=== PATIENT | male | born 2000 | race Caucasian/White ===

== ENCOUNTER 2019-06-02 19:30 | Emergency (ER) | payer OTHER ==
[2019-06-02 19:53] VITALS: BP 133/68
--- NOTE | 2019-06-02 20:36 | UC ---
Ear Complaint HPI - HPI Summary HPI Summary: 19 yo [place] student with 4 day hx of sore throat off and on, congestion, with progressive ear pain tonight. No fever. Using mucinex and advil with some relief of symptoms. - History of Current Complaint Chief Complaint: UCGeneralIllness Stated Complaint: CONGESTION,COUGH,R EAR COMPLAINT Time Seen by Provider: 06/02/19 20:29 Hx Obtained From: Patient Onset/Duration: Gradual Onset, Lasting Days - 4 Pain Intensity: 3 Alleviating Factors: OTC Meds Associated Signs/Symptoms: Positive: URI Symptoms. Negative: Discharge, Hearing Loss - Allergies/Home Medications Allergies/Adverse Reactions: Allergies Allergy/AdvReac Type Severity Reaction Status Date / Time amoxicillin Allergy Intermediate Rash Verified 06/02/19 19:53 PMH/Surg Hx/FS Hx/Imm Hx Previously Healthy: Yes - Surgical History Surgical History: Yes Surgery Procedure, Year, and Place: tongue as a child - Family History Known Family History: Positive: None - parents living and healthy. Negative: Respiratory Disease - Social History Occupation: Student Lives: Dormitory/Roommates Alcohol Use: Occasionally Alcohol Amount: once a week Substance Use Type: None Smoking Status (MU): Never Smoked Tobacco Review of Systems All Other Systems Reviewed And Are Negative: Yes Constitutional: Positive: Fatigue Skin: Positive: Negative Eyes: Positive: Negative ENT: Positive: Sore Throat, Ear Ache, Nasal Discharge, Sinus Congestion Respiratory: Positive: Cough. Negative: Shortness Of Breath Cardiovascular: Negative: Palpitations, Chest Pain Gastrointestinal: Positive: Negative Genitourinary: Positive: Negative Motor: Positive: Negative Neurovascular: Positive: Negative Musculoskeletal: Positive: Negative Neurological: Positive: Negative Psychological: Positive: Negative Is Patient Immunocompromised?: No Physical Exam Triage Information Reviewed: Yes Appearance: No Pain Distress, Ill-Appearing - looks mildly unwell Vital Signs: Initial Vital Signs Temp 98.6 F 06/02/19 19:48 Pulse 83 06/02/19 19:48 Resp 15 06/02/19 19:48 BP 133/68 06/02/19 19:48 Pulse Ox 98 06/02/19 19:48 ENT: Positive: Pharyngeal erythema, TM bulging, TM red - on right Neck: Positive: Supple, Nontender, No Lymphadenopathy Respiratory: Positive: Lungs clear, Normal breath sounds Cardiovascular: Positive: RRR, No Murmur Musculoskeletal Exam: Normal Neurological Exam: Normal Psychological Exam: Normal Skin Exam: Normal Ear Complaint Course/Dx - Course Course Of Treatment: azithromycin for treatment of right otitis media. - Differential Dx/Diagnosis Differential Diagnosis/HQI/PQRI: Otitis Media, Pharyngitis, URI Provider Diagnosis: Right otitis media Discharge ED - Sign-Out/Discharge Documenting (check all that apply): Patient Departure All imaging exams completed and their final reports reviewed: No Studies - Discharge Plan Condition: Good Disposition: HOME Prescriptions: Azithromyxin TAYLER (NF) [Z-Tayler (Zithromax) 250 mg tabs #6] 2 tab PO .TODAY, THEN 1 DAILY #6 tab Patient Education Materials: Ear Infection (ED) Referrals: No Primary Care Phys,NOPCP [Primary Care Provider] - Additional Instructions: You have been prescribed a zpack for treatment of right ear infection. Continue use of mucinex and advil for control of symptoms. Ear pain can persist for 2 to 3 more days. - Billing Disposition and Condition Condition: GOOD Disposition: Home
== END 2019-06-02 20:46 | disposition home or self-care (01) ==
LOC: UCCORT 19:30
DX: H66.91 Otitis media, unspecified, right ear (principal); J02.9 Acute pharyngitis, unspecified; R09.89 Other specified symptoms and signs involving the circulatory and respiratory systems; R09.81 Nasal congestion; Z88.0 Allergy status to penicillin
CPT/HCPCS: 99202; G0463

== ENCOUNTER 2019-06-07 18:11 | Emergency (ER) | payer OTHER ==
[2019-06-07 18:29] VITALS: BP 121/68
--- NOTE | 2019-06-07 18:43 | UC ---
Ear Complaint HPI - HPI Summary HPI Summary: 19-year-old male comes in with a chief complaint of right ear pain. He's had upper respiratory tract infection symptoms for more than 10 days. He was treated with Gutierrez azithromycin with a right otitis media which did improve his symptoms some. He still does have some green rhinorrhea. He is continuing to have right ear pressure. Has tried some Advil with some help with the symptoms. Is not a swimmer. No complaint of shortness of breath. - History of Current Complaint Chief Complaint: UCEar Stated Complaint: RT EAR RECHECK Time Seen by Provider: 06/07/19 18:28 Pain Intensity: 3 - Allergies/Home Medications Allergies/Adverse Reactions: Allergies Allergy/AdvReac Type Severity Reaction Status Date / Time amoxicillin Allergy Intermediate Rash Verified 06/07/19 18:29 Home Medications: Home Medications Ibuprofen/Pseudoephedrine HCl [Advil Cold & Sinus Caplet] 1 each PO DAILY [History Confirmed 06/07/19] PMH/Surg Hx/FS Hx/Imm Hx Previously Healthy: Yes - Surgical History Surgical History: Yes Surgery Procedure, Year, and Place: tongue as a child - Family History Known Family History: Positive: None - parents living and healthy. Negative: Respiratory Disease - Social History Alcohol Use: Occasionally Alcohol Amount: once a week Substance Use Type: None Smoking Status (MU): Never Smoked Tobacco Review of Systems All Other Systems Reviewed And Are Negative: Yes Constitutional: Positive: Other - SEE HPI Skin: Positive: Negative Eyes: Positive: Negative ENT: Positive: Ear Ache, Nasal Discharge, Sinus Congestion Respiratory: Positive: Negative Cardiovascular: Positive: Negative Gastrointestinal: Positive: Negative Motor: Positive: Negative Neurovascular: Positive: Negative Musculoskeletal: Positive: Negative Neurological: Positive: Negative Psychological: Positive: Negative Is Patient Immunocompromised?: No Physical Exam Appearance: Well-Appearing, No Pain Distress, Well-Nourished Vital Signs: Initial Vital Signs Temp 98.8 F 06/07/19 18:26 Pulse 67 06/07/19 18:26 Resp 16 06/07/19 18:26 BP 121/68 06/07/19 18:26 Pulse Ox 98 06/07/19 18:26 Vital Signs Reviewed: Yes Eye Exam: Normal Eyes: Positive: Conjunctiva Clear ENT: Positive: Pharyngeal erythema, Nasal congestion, TM dull - RT, TM red - MILD Neck: Positive: Supple Respiratory: Positive: Lungs clear, Normal breath sounds, No respiratory distress Cardiovascular: Positive: RRR Musculoskeletal: Positive: Strength Intact, ROM Intact Neurological: Positive: Alert, Muscle Tone Normal Psychological: Positive: Age Appropriate Behavior Skin Exam: Normal Ear Complaint Course/Dx - Course Course Of Treatment: Right eardrum does have some fluid behind it and it's mildly erythematous. He still retaining some symptoms of sinusitis. We discussed symptomatic treatment to help with drainage of the right ear to decrease the pain. With the probability of the sinus infection remaining also prescribed doxycycline. Reevaluate if not improving or worse or any questions or concerns. - Differential Dx/Diagnosis Provider Diagnosis: Right serous otitis media, Sinusitis Discharge ED - Sign-Out/Discharge Documenting (check all that apply): Patient Departure All imaging exams completed and their final reports reviewed: No Studies - Discharge Plan Condition: Stable Disposition: HOME Prescriptions: DOXYcycline CAP(*) [DOXYcycline 100MG CAP(*)] 100 mg PO BID #20 cap Fluticasone NASAL SPRAY 50MCG* [Flonase NASAL SPRAY 50MCG*] 2 spray BOTH NARES DAILY #1 btl Patient Education Materials: Sinusitis (ED), Serous Otitis Media (ED) Referrals: [facility] [[facility]] [facility] [Outside] Additional Instructions: FOLLOW UP WITH YOUR DOCTOR IF NOT COMPLETELY IMPROVED. GET REEVALUATED IF NOT IMPROVING OR WORSE OR ANY QUESTIONS OR CONCERNS. - Billing Disposition and Condition Condition: STABLE Disposition: Home
== END 2019-06-07 18:48 | disposition home or self-care (01) ==
LOC: UCCORT 18:11
DX: H65.91 Unspecified nonsuppurative otitis media, right ear (principal); J32.9 Chronic sinusitis, unspecified; Z88.0 Allergy status to penicillin
CPT/HCPCS: 99212; G0463